=== PATIENT | male | born 1935 | race Caucasian/White ===

== ENCOUNTER 2017-06-29 10:32 | Inpatient (IN) | payer MEDICARE ==
[~2017-06-29] VITALS: Ht 177.8 cm; Wt 122.0 kg
[~2017-06-29 10:32] MED LIST: ADLT ASA LOW81 MG PO; ALBUTEROL IN; ALBUTEROL2.5 MG/3 M IN; ALDACTONE25 MG OR; ALLOPURINOL100 MG PO; AMMONIUM LACTATE 12% EX; AMOXICILLIN875 MG OR; APAP/HYDRO325 MG/10 PO; ASMANEX 120220 MCG IN; ASMANEX 60220 MCG IN; ATIVAN0.5 MG PO; ATIVAN1 M1 PO; AUGMENTIN875TAB OR; AZITHROMYCIN250 MG PO; CEFTIN500 MG PO; CIPRO500 MG OR; CIPRO500 MG PO; CLARITIN10 MG PO; COLACE100 MG PO; CORTISPORIN OTI10 ML AD; COUMADIN2.5 MG PO; COUMADIN5 MG OR; COUMADIN7.5 MG PO; D31000 UNIT PO; DICLOFENAC SODI1.5 % TOP; DILAUDID 2MG2 MG/TA1 PO; DILTIAZEM120 MG PO; DILTIAZEM180 MG OR; DRISDOL50000 UNT OR; EPLERENONE25 MG PO; FERROUS SULF325 M1 PO; FLONASE NASAL50 MCG; FLUNISOLIDE 0.025% NAB; FLUNISOLIDE0.025 %; FLUOROURACIL51 EX; FORADIL IN; FUROSEMIDE40 MG PO; GABAPENTIN100 MG PO; GLUCOTROL10 MG PO; GLYB/METFO5 MG/500 M OR; GLYB/METFO5 MG/500 M PO; GUAIFENESIN400 MG OR; GUAIFENESIN400 MG PO; KEFLEX500 M1 PO; KEFLEX500 MG PO; KENALOG-4040 MG/ML IC; KLOR-CON 88 MEQ OR; LANTUS100 UNIT/M SC; LASIX 40 MG TAB40 MG OR; LASIX 40 MG TAB40 MG PO; LEVITRA10 MG OR; LIDOCAINE5 % TOP; LISINOPRIL10 MG OR; LORCET10/650 PO; LORTAB 5 OR; METHYLPRED4 M1 OR; METOLAZONE10 MG PO; METOPROLOL SUC200 MG PO; MORPHINE SUL30 M3 PO; NASONEX50 MCG/AC; NEURONTIN100 MG PO; NORTRIPTYLIN10 MG PO; NOVOLIN N1 ML SC; NOVOLIN N1000 UNITS; NOVOLIN N1000 UNITS SC; NOVOLIN R U-1001 ML SC; NOVOLOG FL100 UNIT/M SC; NOVOLOG FLEXPEN SC; OXY1; POLYETHYLENE GLYCO2 PO; POT CHLORIDE20 ME3 PO; PREDNISONE10 MG PO; PREDNISONE20 MG PO; PROSCAR OR; PROSCAR5 MG PO; PROVENTIL HFA INH; PROVENTIL0.083 % IN; ROCALTROL0.25 MCG OR; SENNOSIDES8.6 M1 PO; SIMVASTATIN20 MG PO; SPIRIVA IN; SYMBICORT 80-4.5MCG PO; SYMBICORT1 AE1 IN; SYNTHROID25 MCG PO; SYNTHROID50 MCG PO; TAMSULOSIN0.4 MG PO; TEMAZEPAM30 MG PO; TERAZOSIN5 MG OR; TERAZOSIN5 MG PO; TOPROL XL PO; TOPROL XL200 M1 PO; TOPROL XL200 MG OR; TOPROL XL200 MG PO; ULTRAM50 MG OR; WARFARIN2.5 MG PO; WARFARIN5 MG PO; ZITHROMAX500 MG PO; ZOCOR10 MG PO; ZOCOR20 MG OR; ZOLPIDEM5 MG OR; [UNRECOGNIZED DRUG - OTHER] DT; [UNRECOGNIZED DRUG - OTHER] EX; [UNRECOGNIZED DRUG - OTHER] PO; [UNRECOGNIZED DRUG - OTHER] PO; [UNRECOGNIZED DRUG - REMARK]
--- NOTE | 2017-06-29 10:57 | NUR ---
PATIENT TO ROOM VIA WHEELCHAIR AND PHYSICIAN AT BEDSIDE FOR EVALUATION
[2017-06-29 11:28] LABS: IMMATURE GRANULOCYTES 0.6 % (0.0-1.0); MEAN CELL VOLUME 98.8 fL CALC (80.0-100.0); MEAN CORPUSCULAR HGB 30.5 pG CALC (26.0-32.0); MEAN CORPUSCULAR HGB CONC 30.8 g/L CALC (32.0-36.0); NEUT# 9.91 thou/uL (1.82-7.42); RED BLOOD COUNT 4.07 mill/uL (4.70-6.10); RED CELL DISTRI WIDTH 15.6 % (11.5-15.5)
[2017-06-29 11:31] LABS: HEMATOCRIT 40.2 % (39.0-50.0); HEMOGLOBIN 12.4 g/dl (14.0-18.0)
--- NOTE | 2017-06-29 11:38 | NUR ---
PT PROVIDED LASIX ORDERED, SITS UP STRAIGHT IN STRETCHER TO ALLOW FOR BETTER BREATHING. PT AWARE OF PENDING ADMISSION.
[2017-06-29] MEDS ORDERED: ELIQUIS2.5 MG PO (11:44)
[2017-06-29] MEDS ORDERED: BISACODYL5 MG PO (11:45)
[2017-06-29 11:47] LABS: ACT PARTIAL THROMBO TIME 26.4 SECONDS (20.0-32.5)
[2017-06-29] MEDS ORDERED: CALCITRIOL0.25 MC1 PO (11:47)
[2017-06-29] MEDS ORDERED: [UNRECOGNIZED DRUG - OTHER] TOP (11:48)
[2017-06-29 11:49] LABS: PROTHROMBIN TIME 11.3 SECONDS (9.0-12.5)
[2017-06-29] MEDS ORDERED: DULOXETINE HCL30 MG PO (11:50)
[2017-06-29 11:51] LABS: BILIRUBIN, TOTAL 0.6 mg/dL (0.0-1.4); CREATININE 1.6 mg/dL (0.7-1.3); POTASSIUM 4.3 mmol/l (3.5-5.1); TOTAL PROTEIN 6.7 g/dL (6.3-8.2)
[2017-06-29] MEDS ORDERED: EPLERENONE25 MG PO (11:51)
[2017-06-29 11:52] LABS: ALBUMIN 3.7 g/dL (3.2-5.0)
[2017-06-29] MEDS ORDERED: LEVOTHYROXIN75 MCG PO (11:56)
[2017-06-29] MEDS ORDERED: TORSEMIDE20 M1 PO ×2 (12:02)
[2017-06-29] MEDS ORDERED: TRAMADOL HCL50 MG PO (12:03)
[2017-06-29 12:16] LABS: URINE BILIRUBIN - DIPSTICK NEGATIVE (NEGATIVE); URINE BLOOD DIPSTICK NEGATIVE (NEGATIVE); URINE COLOR YELLOW; URINE GLUCOSE - DIPSTICK NEGATIVE (NEGATIVE); URINE KETONE NEGATIVE (NEGATIVE); URINE LEUK ESTERASE NEGATIVE (NEGATIVE); URINE NITRITE - DIPSTICK NEGATIVE (Negative); URINE UROBILINOGEN - DIPSTICK 0.2 E.U./dL (0.2)
[2017-06-29 12:31] LABS: URINE CLARITY CLEAR
[2017-06-29 12:32] LABS: URINE PROTEIN - DIPSTICK Trace mg/dL (NEG-TRACE)
[2017-06-29 12:41] LABS: INFLUENZA A NONE DETECTED (NONE DETECT); INFLUENZA B NONE DETECTED (NONE DETECT)
--- NOTE | 2017-06-29 14:45 | NUR ---
PT TAKEN TO M/S, REPORT WAS TO JACE.
--- NOTE | 2017-06-29 14:52 | NUR ---
PT CAME FROM ER VIA WC WITH O2 VIA NC AT 2.5L/MIN BY SANGITA BARRETT. FRATERNITY ADVISER IN FOR FOR STAND BY ASSIST TO SCALE AND BED.
[2017-06-29 15:00] VITALS: BP 158/85
--- NOTE | 2017-06-29 15:50 | NUR ---
ASSESSMENT DONE TELE IN PLACE. LUNG SOUND DIMIMISHED.#20 LH THAT APPEARS HEALTHY. PT HAS 02 AT 2.5L/MIN VIA NC. PT DENIES PAIN AT THIS TIME. ORIENTED TO CALL LIGHT AND SAFETY PRECAUTIONS REINFORCED. IN ROOM.
--- NOTE | 2017-06-29 18:47 | NUR ---
CALLED DR. BRUMFIELD RE: PT FEELING SHORTNESS OF BREATH AND ORDERS RECEIVED.
[2017-06-29 19:05] VITALS: BP 161/93
--- NOTE | 2017-06-29 19:10 | NUR ---
REPORT RECIEVED; PT SITTING ON SIDE OF BED WITH FAMILY AT BEDISDE. RESP EVEN AND UNLABORED WITH O2 IN PLACE. PT DENIES ANY PAIN OR DISCOMFORT. PLAN OF CARE DISCUSSED. PT ENCOURAGED TO CALL FOR ASSISTANCE. SAFETY PRECAUTIONS REINFORCED. FREQUENT ROUNDS MADE. CALL LIGHT WITHIN REACH.
--- NOTE | 2017-06-29 19:34 | NUR ---
PT WOKE FOR ASSESSMENT;RESP EVEN AND UNLABORED WITH CPAP IN PLACE. PT DENIES PAIN OR DISCOMFORT. TELE IN PLACE. LUNGS DIMINISHED BILAT. ABD DISTENDED,SOFT; ACTIVE BOWEL SOUNDS NOTED. +1 EDEMA BILAT LEGS; PT ENCOURAGED TO ELEVATE. PEDAL PULSES PALPATED BILAT. IV LH PATENT; FLUSHED WITHOUT DIFFICULT. SAFETY PRECAUTIONS REINFORCED. CALL LIGHT WITHIN REACH.
[2017-06-30] VITALS (7 sets, daily range): BP systolic 115–135; BP diastolic 58–76
--- NOTE | 2017-06-30 00:05 | NUR ---
PT REPOSITIONED IN BEDSIDE CHAIR. PT STATES IT IS MORE COMFORTABLE TO SLEEP IN BEDSIDE CHAIR. RESP EVEN AND UNLABORED WITH O2 IN PLACE. PT DENIES PAIN CURRENTLY. TELE IN PLACE. SAFETY PRECAUTIONS REINFORCED. CALL LIGHT WITHIN REACH.
--- NOTE | 2017-06-30 03:42 | NUR ---
PT ASSISTED BACK TO BED FROM BEDSIDE CHAIR x2 PERSON ASSIST WITH WALKER. RESP EVEN AND UNLABORED WITH CPAP IN PLACE. TELE IN PLACE. SAFETY PRECAUTIONS REINFORCED. CALL LIGHT WITHIN REACH.
--- NOTE | 2017-06-30 04:00 | NUR ---
PT APPEARS TO BE SLEEPING AT THIS TIME. RESP EVEN AND UNLABORED WITH CPAP IN PLACE. TELE IN PLACE. CALL LIGHT WITHIIN REACH.
--- NOTE | 2017-06-30 08:52 | NUR ---
PT SITTING UP IN RECLINER CHAIR. ASSESSMENT COMPLETED. VSS. PT C/O DIFFICULTY SWALLOWING. ABLE TO TAKE PO MEDS, ONE BY ONE WITH WATER THIS MORNING. WILL AWAIT MD ROUNDS. POC DISCUSSED WITH PT. WILL CONTINUE TO MONITOR. CALL LIGHT IN REACH.
--- NOTE | 2017-06-30 09:25 | NUR ---
NOTIFIED BY ER STAFF OF PT RUNNING VTACH ON TELE MONITOR. PT SITTING IN CHAIR. MARCIN LEONARD IN ROOM WITH PT. NO DISTRESS NOTED.
--- NOTE | 2017-06-30 10:31 | NUR ---
PT VOIDED 200CC, REQUESTED HELP TO LAY IN BED. CALL LIGHT IN REACH.
--- NOTE | 2017-06-30 12:00 | NUR ---
PT WENT BACK TO BED WITH NO DISTRESS NOTED. IV SITE IS FREE FROM REDNESS OR EDEMA. CONTINUE TO OBSERVE AND MONITOR
[2017-06-30 12:02] LABS: HEMATOCRIT 37.5 % (39.0-50.0); HEMOGLOBIN 11.7 g/dl (14.0-18.0); IMMATURE GRANULOCYTES 0.5 % (0.0-1.0); MEAN CELL VOLUME 97.9 fL CALC (80.0-100.0); MEAN CORPUSCULAR HGB 30.5 pG CALC (26.0-32.0); MEAN CORPUSCULAR HGB CONC 31.2 g/L CALC (32.0-36.0); NEUT# 8.84 thou/uL (1.82-7.42); RED BLOOD COUNT 3.83 mill/uL (4.70-6.10)
--- NOTE | 2017-06-30 12:04 | NUR ---
PT SITTING UP ON SIDE OF BED EATING LUNCH. NO C/O AT THIS TIME. CALL LIGHT IN REACH.
[2017-06-30 12:22] LABS: ALBUMIN 3.4 g/dL (3.2-5.0); BILIRUBIN, TOTAL 0.6 mg/dL (0.0-1.4); CREATININE 1.7 mg/dL (0.7-1.3); MAGNESIUM 2.1 mg/dL (1.6-2.3); POTASSIUM 4.6 mmol/l (3.5-5.1); TOTAL PROTEIN 6.4 g/dL (6.3-8.2)
--- NOTE | 2017-06-30 16:00 | NUR ---
PT IS SITTING UP IN THE CHAIR AND VISITING WITH HIS NO DISTRESS NOTED. IV SITE IS FREE FROM REDNESS OR EDEMA. CONTINUE TO OSBERVE AND MONITOR.
--- NOTE | 2017-06-30 19:57 | NUR ---
BEDSIDE REPORT RECEIVED FROM STEVEN CRUZ. PT SITTING UP IN BED WITH VISITOR AT BEDSIDE. DENIES PAIN. RESPIRATIONS EVEN AND UNLABORED ON OXYGEN. PT REMINDED OF FLUID RESTRICTIONS; MOUTH SWABS GIVEN TO HELP WITH MOISTENING DRY MOUTH. PLAN OF CARE DISCUSSED. PT ENCOURAGED TO VERBALIZE CONCERNS. STATES UNDERSTANDING. SAFETY MEASURES IN PLACE. CALL LIGHT WITHIN REACH.
--- NOTE | 2017-06-30 20:30 | NUR ---
[facility] TECH CALLED TO NOTIFY NURSE OF SLOW RUN OF VTACH THAT DID NOT SUSTAIN. AT TIME OF RHYTHM CHANGE PT WAS UP TO BSC. PT ASYMPTOMATIC AND RETURNED TO AFIB AT REST. WILL CONTINUE TO MONITOR.
--- NOTE | 2017-06-30 22:49 | NUR ---
AMBULATED TO BATHROOM WITH 4W ROLLING WALKER. VOIDED AND VERBALIZED CHRONIC ISSUES WITH CONSTIPATION. ATTEMPTED TO HAVE BOWEL MOVEMENT AND STATES THAT HE TAKES LAXATIVES AT HOME REGULARLY AND THIS WILL BE HIS THIRD DAY WITHOUT A BM. MIRALAX GIVEN AT THIS TIME. PT ASSISTED BACK INTO BED. CPAP IN PLACE AT . NO OTHER REQUESTS OR COMPLAINTS AT THIS TIME. CALL LIGHT WITHIN REACH.
[2017-07-01] VITALS: BP 136/73
--- NOTE | 2017-07-01 00:11 | NUR ---
PT ASLEEP IN BED ON LEFT SIDE; AWAKENS TO TACTILE STIMULI; HE IS HARD OF HEARING AND WEARS BILATERAL HEARING AIDS. DENIES PAIN. RESPIRATIONS EVEN AND UNLABORED WITH CPAP IN PLACE. VS STABLE. IV SITE APPEARS HEALTHY AND FLUSHES. PT HAS NO REQUESTS OR COMPLAINTS AT THIS TIME. SAFETY MEASURES IN PLACE. CALL LIGHT WITHIN REACH.
--- NOTE | 2017-07-01 05:09 | NUR ---
PT REQUESTED PUDDING BECAUSE HE FELT LIGHT HEADED WITH BLURRED VISION. ACCU CHECK AT THAT TIME 60. ORANGE JUICE AND PUDDING GIVEN. WILL REASSESS. PT ALREADY FEELING BETTER. UP IN CHAIR NOW RT AT BEDSIDE GIVING BREATHING TREATMENT.
[2017-07-01 05:22] LABS: HEMATOCRIT 38.9 % (39.0-50.0); IMMATURE GRANULOCYTES 0.4 % (0.0-1.0); MEAN CELL VOLUME 98.2 fL CALC (80.0-100.0); MEAN CORPUSCULAR HGB 30.3 pG CALC (26.0-32.0); MEAN CORPUSCULAR HGB CONC 30.8 g/L CALC (32.0-36.0); NEUT# 6.53 thou/uL (1.82-7.42); RED BLOOD COUNT 3.96 mill/uL (4.70-6.10); RED CELL DISTRI WIDTH 15.1 % (11.5-15.5)
[2017-07-01 06:17] LABS: ALBUMIN 3.1 g/dL (3.2-5.0); BILIRUBIN, TOTAL 0.5 mg/dL (0.0-1.4); CREATININE 1.7 mg/dL (0.7-1.3); MAGNESIUM 2.2 mg/dL (1.6-2.3); POTASSIUM 3.8 mmol/l (3.5-5.1); TOTAL PROTEIN 5.9 g/dL (6.3-8.2)
[2017-07-01 06:48] LABS: TSH, 3RD GENERATION 5.95 uIU/mL (0.47 - 4.68)
--- NOTE | 2017-07-01 07:00 | NUR ---
REPORT RECEIVED FROM SANGITA ALVAREZ;PT APPEARS OOB SLEEPING IN RECLINER;RESPIRATIONS EVEN AND UNLABORED WITH HOME CPAP ON;NO S/S OF DISTRESS NOTED;TELE MONITOR IN PLACE;CALL LIGHT IN REACH;WILL CONTINUE TO MONITOR
[2017-07-01 07:50] VITALS: BP 133/76
--- NOTE | 2017-07-01 07:50 | NUR ---
PT OOB RESTING IN RECLINER;VS OBTAINED AND ASSESSMENT COMPLETED;RESPIRATIONS EVEN AND UNLABORED ON 02 @ 2.5L VIA NC;ABDOMEN DISTENDED/FIRM ON PALPATION WITH 4 ACTIVE BOWEL SOUNDS;FLUID RESTRICTIONS REINFORCED,1000 ML PER SHIFT;WEAK PEDAL PULSES AND +2 PITTING EDEMA NOTED TO BILATERAL ANKLES;ENCOURAGED PT TO ELEVATE LEGS;#20G TO LEFT HAND FLUSHED AND PATENT,SITE APPEARS HEALTHY;TELE MONITOR IN PLACE;PT NOTED TO BE HARD OF HEARING;PT VOICES NO COMPLAINTS OF PAIN OR DISCOMFORTS;SAFETY PRECAUTIONS REINFORCED;CALL LIGHT WITHIN REACH;WILL CONTINUE TO MONITOR
[2017-07-01 10:48] VITALS: BP 136/79
--- NOTE | 2017-07-01 11:20 | NUR ---
PT OOB SLEEPING IN RECLINER WITH HOME CPAP ON;RESPIRATIONS APPEAR EVEN AND UNLABORED;NO S/S OF DISTRESS NOTED;TELE MONITOR IN PLACE;FALL PRECAUTIONS;CALL LIGHT IN REACH;WILL CONTINUE TO MONITOR
[2017-07-01 14:51] VITALS: BP 151/80
--- NOTE | 2017-07-01 15:02 | NUR ---
PT COMPLAINS OF BILATERAL HAND ACHING RATING 6/10 ON THE PAIN SCALE AND REQUESTS PAIN MEDICATION;PT MEDICATED WITH ULTRAM 50MG PO AT THIS TIME;WILL MONITOR FOR EFFECT
--- NOTE | 2017-07-01 16:04 | NUR ---
PT RESTING IN RECLINER WITH AT BEDSIDE;REPORTS A DECREASE IN BILATERAL HAND PAIN;RESPIRATIONS REMAIN EVEN AND UNLABORED ON 02 @ 2.5L;PT VOICES NO COMPLAINTS OR CONCERNS;TELE MONITOR;FALL PRECAUTIONS IN PLACE;WILL CONTINUE TO MONITOR
--- NOTE | 2017-07-01 19:00 | NUR ---
BEDSIDE REPORT RECEIVED FROM STEVEN SAUNDERS. PT SITTING UP IN BEDSIDE CHAIR WITH VISITORS AT BEDSIDE. C/O SOME MILD PAIN TO HANDS; RESPIRATIONS EVEN AND UNLABORED ON OXYGEN. CONTINUES ON FLUID RESTRICTION OF 1000ML/DAY. PLAN OF CARE REVIEWED. PT ENCOURAGED TO VERBALIZE CONCERNS. HIS GOAL THIS SHIFT IS TO HAVE A BOWEL MOVEMENT; HE IS CONCERNED ABOUT CONSTIPATION. SAFETY MEASURES IN PLACE. CALL LIGHT WITHIN REACH.
[2017-07-01 19:10] VITALS: BP 147/88
--- NOTE | 2017-07-01 22:30 | NUR ---
PT NOW RESTING IN BED WITH CPAP IN PLACE. HE AMBULATED TO BATHROOM PRIOR WITH OXYGEN EXTENSION TUBING TO VOID ONLY. TRAMADOL GIVEN AT HS FOR HAND NEUROPATHY WITH GOOD EFFECT.
[2017-07-02] VITALS (7 sets, daily range): BP systolic 131–170; BP diastolic 65–90
--- NOTE | 2017-07-02 00:34 | NUR ---
PT SITTING UP IN CHAIR AGAIN WITH COMPLAINTS OF INDIGESTION; HE REQUESTED SOME MILK TO SETTLE HIS STOMACH; GIVEN A SMALL AMOUNT TO COMPLY WITH FLUID RESTRICTION.
--- NOTE | 2017-07-02 04:37 | NUR ---
PT BACK UP IN CHAIR WITH CPAP IN PLACE. REQUESTS SOMETHING MORE FOR CONSTIPATION. NO ACUTE CHANGES IN CONDITION NOTED THIS SHIFT. TELE ON. IV SITE APPEARS HEALTHY AND FLUSHES. SAFETY MEASURES IN PLACE. CALL LIGHT WITHIN REACH.
[2017-07-02 05:45] LABS: CREATININE 1.6 mg/dL (0.7-1.3); POTASSIUM 4.1 mmol/l (3.5-5.1)
--- NOTE | 2017-07-02 07:00 | NUR ---
REPORT RECEIVED FROM ANTONIORN;PT OOB RESTING IN RECLINER;INTRODUCED SELF TO PT AND POC DISCUSSED;RESPIRATIONS EVEN AND UNLABORED,SHALLOW ON 02 @ 2.5L VIA NC;PT ENCOURAGED TO EXPRESS ALL CONCERNS;CALL LIGHT IN REACH;WILL CONTINUE TO MONITOR
--- NOTE | 2017-07-02 08:50 | NUR ---
PT RESTING IN RECLINER;VS OBTAINED AND ASSESSMENT COMPLETED;RESPIRATIONS EVEN AND UNLABORED,SHALLOW ON O2 @ 2.5L VIA NC,HOME CPAP AT BEDSIDE;LUNGS DIMINISHED/CLEAR ON AUSCULTATION;ABDOMEN DISTENDED/FIRM ON PALPATION AND ACTIVE IN ALL 4 QUADRANTS;WEAK PEDAL PULSES AND +2 PITTING EDEMA NOTED TO BILATERAL ANKLES;PT ENCOURAGED TO ELEVATE LEGS;#20G TO LEFT HAND FLUSHED AND PATENT,SITE APPEARS HEALTHY;SKIN INTACT;TELE MONITOR IN PLACE;PT REMINDED OF 1000CC A DAY DIET AND VERBALIZES UNDERSTANDING;SAFETY PRECAUTIONS REINFORCED WITH FALL PRECAUTIONS IN PLACE;CALL LIGHT WITHIN REACH;WILL CONTINUE TO MONITOR
--- NOTE | 2017-07-02 09:45 | NUR ---
PT MEDICATED WITH PRN MIRLAX FOR CONSTIPATION AT THIS TIME
--- NOTE | 2017-07-02 11:29 | NUR ---
PT RESTING IN SEMI FOWLERS POSITION IN BED WITH HOME CPAP ON;RESPIRATIONS EVEN AND UNLABORED;PT DENIES PAIN OR DISCOMFORTS;TELE MONITOR IN PLACE;PT ENCOURAGED TO CALL FOR ASSISTANCE IF NEEDED;FALL PRECAUTIONS;WILL CONTINUE TO MONITOR
--- NOTE | 2017-07-02 13:02 | NUR ---
PT COMPLAINS OF NAUSEA;PRN ZOFRAN 4MG IVP AT THIS TIME
--- NOTE | 2017-07-02 14:55 | NUR ---
PT AT BEDSIDE
--- NOTE | 2017-07-02 15:10 | NUR ---
PT WAS SEEN RESTING IN BED WITH IN THE ROOM. PT AND BOTH REQUESTED THE EVALUATION TO BE DONE TOMORROW OR WHEN THE PATIENT FEELS BETTER. STATES THAT PATIENT HAS BEEN FEELING SICK IN HIS STOMACH. PT HAD CPAP AND O2 ON 2L, SPO2 WAS 97% HOWEVER WITH APPARENT DYSPNEA. WILL RE-ATTEMPT EVALUATION TOMORROW.
--- NOTE | 2017-07-02 16:00 | NUR ---
GLYCERIN SUPPOSITORY ADMINISTERED FOR CONSTIPATION; AT BEDSIDE;RESPIRATIONS EVEN AND UNLABORED ON HOME CPAP;DENIES ANY PAIN;TELE MONITOR IN PLACE;IV SITE PATENT;ENCOURAGED TO CALL FOR ASSISTANCE IF NEEDED;CALL LIGHT IN REACH;WILL CONTINUE TO MONITOR
--- NOTE | 2017-07-02 16:45 | NUR ---
PT REQUEST ENEMAS;DUANE RUIZ,ANRP NOTIFIED AND ORDERS RECEIVED TO ADMINISTER SOAP JOSHUA ENEMAS UNTIL CLEAR
--- NOTE | 2017-07-02 16:50 | NUR ---
1ST ROUND OF SOAP SUDS ENEMAS ADMINISTERED,PT TOLERATED WELL;SCANT DARK BROWN BM OBTAINED
--- NOTE | 2017-07-02 17:30 | NUR ---
FIRST BAG OF SOAP JOSHUA ENEMAS COMPLETED;SCANT,DARK BROWN BM NOTED;PT REPORTS SOME RELIEF AT THIS TIME;WILL CONTINUE TO MONITOR
--- NOTE | 2017-07-02 19:55 | NUR ---
PT RESTING IN BED WITH CPAP IN PLACE. PT OFFERED SOAP JOSHUA ENEMA AT THIS TIME, PT REFUSING ENEMA STATING " I DID NOT SLEEP LAST NIGHT OR TODAY, I DONT WANT ENEMA. I WANT TO SLEEP". RESP EVEN AND UNLABORED; NO DISCOMFORT NOTED. TELE IN PLACE. ABD DIST/FIRM; HYPOACTIVE BOWEL SOUNDS NOTED. +2 ANKLE EDEMA NOTED. PT HAS DANNY HOSE ON. IV 20LH PATENT; FLUSHED WITHOUT DIFFICULTY. PT DENIES ANY PAIN. SAFETY PRECAUTIONS REINFORCED. FREQUENT ROUNDS MADE. PT ENCORUAGED TO CALL FOR ASSISTANCE. CALL LIGHT WITHIN REACH.
--- NOTE | 2017-07-02 21:10 | NUR ---
DR NOTIFIED OF PT BLOOD SUGAR; 159. OK TO GIVE LEVEMIR 2100 DOSE.
[2017-07-03] VITALS (7 sets, daily range): BP systolic 121–157; BP diastolic 54–91
--- NOTE | 2017-07-03 00:04 | NUR ---
SOAP JOSHUA ENEMA ADMINISTERED; SCANT AMOUNT OF BROWN BM NOTED. PT DEINES ANY PAIN. PT RESPOSITIONED IN BED FOR COMFORT. RESP EVEN AND UNLABORED WITH CPAP IN PLACE. TELE IN PLACE. PT REQUEST TO SLEEP AFTER THIS ENEMA. SAFETY PRECAUTIONS REINFORCED. CALL LIGHT WITHIN REACH.
--- NOTE | 2017-07-03 04:05 | NUR ---
PT OFFERED SOAP JOSHUA ENEMA, PT STATES " I WANT TO GO BACK TO SLEEP." PT UP TO [facility] [place]ED 200 YELLOW URINE. RESP EVEN AND UNLABORED WITH CPAP IN PLACE. TELE IN PLACE. PT EDUCATED MORE ON NPO DIET SINCE MIDNIGHT FOR MORNING BARIUM SWALLOW STUDY. PT REPOSITIONED FOR COMFORT. CALL LIGHT WITHIN REACH.
[2017-07-03 05:38] LABS: HEMATOCRIT 39.3 % (39.0-50.0); HEMOGLOBIN 12.2 g/dl (14.0-18.0); MEAN CELL VOLUME 99.2 fL CALC (80.0-100.0); MEAN CORPUSCULAR HGB 30.8 pG CALC (26.0-32.0); RED BLOOD COUNT 3.96 mill/uL (4.70-6.10); RED CELL DISTRI WIDTH 15.1 % (11.5-15.5)
[2017-07-03 05:47] LABS: CREATININE 1.6 mg/dL (0.7-1.3); MAGNESIUM 2.5 mg/dL (1.6-2.3); POTASSIUM 4.2 mmol/l (3.5-5.1)
--- NOTE | 2017-07-03 07:50 | NUR ---
Pt off floor for barium swallow study.
--- NOTE | 2017-07-03 08:00 | NUR ---
pt. alert, oriented to time, place & self. VS stable, Pt. NPO prior to barium swallow study. O2@2lpm. SBA with ADL's , transfers, and toileting. IV site left hand clean & dry, no s/s of redness or swelling. Telemetry in place. 1000 FR intact. DANNY's intact BLE with +2 pitting edema on left foot to ankle, and +1 left ankle to knee. RLE with +1 pitting edema from toes to knee. Pt able to verbalize needs. call light in place. will continue to monitor.
--- NOTE | 2017-07-03 08:00 | NUR ---
Pt back to floor, unable to complete study, breakfast tray ordered. 1800 ADA with 1000 ml FR intact.
--- NOTE | 2017-07-03 08:40 | NUR ---
specification writer spoke with [facility], Radiology in regards to barrium swallow; per [facility], pt was unable to tolerate procedure/ during to inabilty to stand, inabilty to lay flat and pt states "feeling of passing out"; MD to be informed
[2017-07-03] MEDS ORDERED: Levaquin PO (12:44)
--- NOTE | 2017-07-03 13:33 | NUR ---
Pt. alert, oriented to self, place, time. Takes PO fluids & meds without difficulty noted. Pt medicated x1 this shift for BLE pain "5" on 1-10 scale with good relief verbalized by pt. Pt resting with feet up in recliner and cpap in place per pt request. Call light in reach. will continue to monitor.
--- NOTE | 2017-07-03 15:19 | NUR ---
PT off floor with volunteer via W/C to radiology for CT of abdomen & pelvis w/o contrast. 02@2lpm via NC.
--- NOTE | 2017-07-03 18:45 | NUR ---
Notified Dr. Graham via telephone @ [phone], recieved call back now. New order keep pt. til BM. Give ducolax suppository, RBVO, order fax to [facility] for profile. Pt made aware of new order and verbalized understanding. IV levaquin going without difficulty , pt denies SOB, pain or discomfort at this time. Pt sitting at bedside in recliner with feet up visiting with family. Call light in reach. w2ill continue to monitor.
--- NOTE | 2017-07-03 19:00 | NUR ---
RECEIVED CHANGE OF SHIFT REPORT FROM James ARIAS RN. PATIENT ALERT AND ORIENTED AND SITTING UP IN CHAIR WITH CPAP IN PLACE. PT SSTATED "MY KNEES ARE WEAK". ASSISTED PT TO BSC TO VOID. NO APPARENT ACUTE DISTRESS NOTED.
--- NOTE | 2017-07-03 21:44 | NUR ---
PATIENT STATES HIS CPAP IS NOT GIVING ENOUGH PRESSURE AND HE'S NOT ABLE TO LIE DOWN AND BREATHE EFFECTIVELY. SPOKE WITH DR VIVEROS ABOUT TRANSFERING PT TO ICU TO BE PLACED ON A BIPAP DURING THE NIGHT. ORDERS RECEIVED TO TRANSFER PT.
--- NOTE | 2017-07-03 23:00 | NUR ---
STABLE UPON ARRIVAL VIA WC ON 2L NC. SPO2 IS 100% ON NC. NO DISTRESS. AWAKE, ALERT, ORIENTED X 3. SKIN WARM AND DRY. BENNY. DIMINISHED THROUGHOUT LIKELY DUE TO BODY HABITUS PT. IS MORBIDLY OBESE.
--- NOTE | 2017-07-03 23:00 | NUR ---
PT STATED "I NOT FEELING SAFE". TRANSFERRED TO ICU VIA WHEELCHAIR IN SATBLE CONDITION AND PLACED ON BIPAP.
[2017-07-03 23:02] LABS: POTASSIUM 4.4 mmol/l (3.5-5.1)
--- NOTE | 2017-07-03 23:15 | NUR ---
THIS RN NOTED SIGNIFICANT LEAK FROM PATIENTS OWN CPAP MASK AROUND THE BRIDGE OF THE NOSE. RT NOTIFIED. MASK CHANGED TO OUR C/BIPAP MASK AND LEAK HAS BEEN ELIMINATED AT THIS TIME.
[2017-07-04] VITALS (9 sets, daily range): BP systolic 120–157; BP diastolic 64–88
--- NOTE | 2017-07-04 | NUR ---
PT. TO BEDSIDE COMMODE. LARGE DARK GREEN LOOSE BOWEL MOVEMENT AT THIS TIME. PT. REMAINS ON BIPAP. PT. UNABLE TO WIPE HIMSELF. ASSISTED WITH WASH CLOTH AT THIS TIME. PT. WITH ONE PERSON ASSIST BACK TO BED AT THIS TIME. CALL LIGHT PLACED BACK WITHIN REACH.
--- NOTE | 2017-07-04 01:10 | NUR ---
PT. BODY SHOP MECHANIC LIGHT WITH MULTIPLE NEEDS. CLAIMS HE NEEDS WATER, TO SIT UP AND HE IS COLD. ASSISTED TO BEDSIDE.
--- NOTE | 2017-07-04 01:12 | NUR ---
PT. PROVIDED WITH WATER THE BIPAP IS "MAKING HIS MOUTH DRY". PT. REQUESTING TO SIT AT THE BEDSIDE AT THIS TIME. ASSISTED TO BEDSIDE SO HE CAN SIT UP. WILL CONTINUE TO MONITOR.
--- NOTE | 2017-07-04 01:29 | NUR ---
PT. SHIPPING TECHNICIAN LIGHT REQUESTING TO GET BACK INTO BED. REQUESTING ON LAY ON RT. SIDE AT THIS TIME. MAX ASSIST THIS NURSE HAD TO PHYSICALLY TURN PT. ON HIS SIDE PT. PROVIDES MINIMAL ASSIST TO TURN.
--- NOTE | 2017-07-04 01:55 | NUR ---
PT. AGAIN OCCUPATIONAL THERAPIST REHAB MANAGER LIGHT C/O RT. SHOULDER PAIN BECAUSE HE IS LAYING ON IT AND HAS "ARTHRITIS". REPOSITIONED TO LT. SIDE PER PATIENT REQUEST. STATES HE IS COLD. TEMPERATURE IN ROOM IS A WARM IT GETS AND PT. HAS MULTIPLE BLANKETS. PT. DENIES OTHER COMPLATINS OR NEEDS AT THIS TIME.
--- NOTE | 2017-07-04 02:45 | NUR ---
PT. CONTINUES TO MOAN LOUDLY. WHEN ASKED IF ANYTHING IS WRONG, PT. STATES HE IS SO UNCOMFORTABLE. WHEN ASKED IF ANYTHING HE NEEDS REPORTS HE NEEDS TO GO HOME IN THE AM.
--- NOTE | 2017-07-04 03:36 | NUR ---
RT. AT BEDSIDE AT THIS TIME. PT. REMAINS IN BIPAP AT THIS TIME. NO DISTRESS NOTED. REMAINS REPORTEDLY UNCOMFORTABLE. BIPAP REMAIN WITH A GOOD SEAL AT THIS TIME. PT. STATE HE MAY NEED TO HAVE A BOWEL MOVEMENT. THIS RN OFFERED TO GET HIM TO THE BSC, BUT PT. REFUSED AT THIS TIME. STATING HE WANTS TO WAIT.
--- NOTE | 2017-07-04 03:40 | NUR ---
PT. AGAIN ASSOCIATE MATERIAL HANDLER LIGHT REQUESTING ASSISTANCE IN SITTING UP. ASSISTED TO SIT AT BEDSIDE.
--- NOTE | 2017-07-04 03:55 | NUR ---
PT. AGAIN ON THE CALL LIGHT. REQUESTING THAT THE BIPAP BE REMOVED AT THIS TIME. STATING HIS MOUTH IS DRY AND HE WANTS SOME WATER. PROVIDED WITH WATER AND NASAL CANNULA APPLIED AT THIS TIME.
--- NOTE | 2017-07-04 04:02 | NUR ---
PT. SITTING UP AT BEDSIDE. AGAIN CALLS ON THE CALL LIGHT REQUEST SOMETHING TO EAT AND A WARM BEVERAGE. PT. INFORMED BREAKFAST MEALS ARE SERVED AT 0730. ASKED IF THERE IS ANYTHING ELSE HE ANTICIPATES NEEDING IN THE NEAR FUTURE. PT. DENIES OTHER NEEDS.
--- NOTE | 2017-07-04 05:13 | NUR ---
PT. CONTINUES TO SIT AT BEDSIDE IN NO DISTRESS. REQUESTING JUICE, A NEBULIZER TREATMENT AND TO THEN GO BACK ON THE BIPAP FOR A BIT. RT CALLED FOR NEB TREATMENT. PT. PROVIDED WITH APPLE JUICE PER HIS REQUEST.
--- NOTE | 2017-07-04 05:22 | NUR ---
RT AT BEDSIDE. NEB TREATMENT IN PROGRESS.
--- NOTE | 2017-07-04 05:34 | NUR ---
NEB TREATMENT COMPLETE. PT. PLACED BACK ON BIPAP BY RT PER HIS REQUEST AT THIS TIME.
--- NOTE | 2017-07-04 05:43 | NUR ---
PT. PROVIDED WITH ANOTHER BLANKET AT THIS TIME.
--- NOTE | 2017-07-04 06:04 | NUR ---
PT. ASSISTED BACK TO BED PER HIS REQUEST AT THIS TIME.
--- NOTE | 2017-07-04 07:15 | NUR ---
PT ALERT AND ORIENTED, AM ASSESSMENT COMPLETED, OUR BI-PAP IN USE AT THIS TIME, VS STABLE TELE READING A FIB RATE IN THE 70'S WITH OCCASIONAL PACED SPIKES, ABD SOFT AND BS ACTIVE, PT HAD MULTIPLE BM'S LAST PM PER REPORT, SKIN WARM DRY AND INTACT, PT WEARING HOME COMPRESSION HOSE, BILATERALLY KNEE HI, ACCU CHECK COMPLETED BS 72, VS STABLE, AFEBRILE, BP STABLE, COMFORT MEASURES PROVIDED, SAFETY PRECAUTIONS REINFORCED, CALL SANTO WITHIN REACH, WILL CONTINUE TO MONITOR
--- NOTE | 2017-07-04 08:20 | NUR ---
AND DUANE BURCH AT BEDSIDE, PT GIVES CONFLICTING INFORMTAION REGARDING REASON FOR TRANSFER AND WHY HERE IN ICU. STATES HIS HOME UNIT NOT WORKING AND SO THEY BROUGHT HIM OVER HERE, PER REPORT PT STATED HE DIDN'T FEEL SAFE BECAUSE HE WASN'T GETTING ENOUGH PRESSURE FROM HIS HOME UNIT, SO THEY BROUGHT HIM TO ICU AND PLACED ON OUR UNIT WITH HIS OWN MASK, THAT MASK NOTED TO LEAK SO PLACED PT ON OUR MASK AND LEAK ISSUE RESOLVED, THEN PT STATES TO DUANE AND THAT HIS UNIT IS BROKEN AND HE JUST NEEDS A NEW UNIT AT HOME AND CAN HE GET A SCRIPT FOR A NEW UNIT, PT REMINDED THAT HE CANNOT "JUST GET A SCRIPT FOR A NEW ONE" AND THAT HE WOULD HAVE TO HAVE A NEW SLEEP STUDY ETC.. PT MUMBLES AND VERBALIZES UNDERSTANDING.
--- NOTE | 2017-07-04 08:45 | NUR ---
SPOKE WITH PT REGARDING UNIT ISSUE PT NOW STATES "IT JUST NEEDS TO BE CLEANED" THIS NURSE ASKED PT SOES HE HAVE THE STUFF TO CLEAN IT AT HOME AND PT STATES "YES", I'M SUPPOSED TO BE GOING HOME TODAY, MY CLOTHES ARE OVER THERE AND MY FAMILY IS BRINGING ME PANTS.
--- NOTE | 2017-07-04 09:09 | NUR ---
JOHN Gomez AT BEDSIDE MACHINE ON AND WORKING, PT STATES HE "WANTS IT TO HAVE THE SAME PRESSURE OUR BIPAP HERE, EDUCATED POT REGARDING DIFFERENCE IN MACHINES AND THAT FOR SETTING CHANGES TO HIS HOME UNIT HE WILL HAVE TO [facility]...THATH YOU CAN'T JUST CHANGE THE SETTINGS. PT AGAIN MUMBLAES BUT VERBAKLIZES UNDERSTANDING
--- NOTE | 2017-07-04 10:00 | NUR ---
PT FAMILY AND HOME HEALTH AIDE AT BEDSIDE, PT ASSISTED WITH DRESSING IV SITE REMOVED INTACT
--- NOTE | 2017-07-04 10:15 | NUR ---
Discharge instructions given. Patient verbalizes understanding of same. Discharged in stable condition via Wheelchair to Home with family. All belongings sent with pt. SCRIPT FOR LEVAQUIN SENT WITH PATIENT, ALL BELONGINGS AND PT'S OWN CPAP SENT WITH PATIENT WELL.
== END 2017-07-04 10:15 | disposition home health service (06) | DRG 291 ==
LOC: ED 10:32 → ED-I 11:25 → ED 12:48 → MS2 12:49 → ED 13:13 → ED-I 13:13 → ICU 07-03 21:44
PROVIDERS: Family Medicine; Internal Medicine; Internal Medicine Nephrology; Nurse Practitioner Family; ADMIT Hospitalist; ATTEND Hospitalist
PROC: 5A09357 Assistance with Respiratory Ventilation, Less than 24 Consecutive Hours, Continuous Positive Airway Pressure (ICD-10-PCS; principal; 2017-07-03)
DX: I13.0 Hypertensive heart and chronic kidney disease with heart failure and stage 1 through stage 4 chronic kidney disease, or unspecified chronic kidney disease (principal); I50.23 Acute on chronic systolic (congestive) heart failure; J18.9 Pneumonia, unspecified organism; E11.22 Type 2 diabetes mellitus with diabetic chronic kidney disease; E11.42 Type 2 diabetes mellitus with diabetic polyneuropathy; J44.0 Chronic obstructive pulmonary disease with (acute) lower respiratory infection; N18.3 Chronic kidney disease, stage 3 (moderate); R13.10 Dysphagia, unspecified; I48.91 Unspecified atrial fibrillation; N25.81 Secondary hyperparathyroidism of renal origin; Z99.81 Dependence on supplemental oxygen; E78.5 Hyperlipidemia, unspecified; D63.1 Anemia in chronic kidney disease; J61 Pneumoconiosis due to asbestos and other mineral fibers; G47.33 Obstructive sleep apnea (adult) (pediatric); K59.09 Other constipation; Z95.0 Presence of cardiac pacemaker; Z87.891 Personal history of nicotine dependence; Z79.01 Long term (current) use of anticoagulants
CPT/HCPCS: J1956

== ENCOUNTER 2017-07-18 11:34 | Inpatient (IN) | payer OTHER, MEDICARE ==
[2017-07-18] VITALS (8 sets, daily range): BP systolic 148–183; BP diastolic 70–94
[~2017-07-18] VITALS: Ht 177.8 cm; Wt 165.3 kg
[~2017-07-18 11:34] MED LIST changes: +BISACODYL5 MG PO; +CALCITRIOL0.25 MC1 PO; +DULOXETINE HCL30 MG PO; +ELIQUIS2.5 MG PO; +LEVOTHYROXIN75 MCG PO; +Levaquin PO; +TORSEMIDE20 M1 PO; +TRAMADOL HCL50 MG PO; +[UNRECOGNIZED DRUG - OTHER] TOP
[2017-07-18 11:59] LABS: HEMATOCRIT 39.3 % (39.0-50.0); HEMOGLOBIN 11.9 g/dl (14.0-18.0); IMMATURE GRANULOCYTES 0.5 % (0.0-1.0); MEAN CORPUSCULAR HGB CONC 30.3 g/L CALC (32.0-36.0); NEUT# 9.46 thou/uL (1.82-7.42); RED BLOOD COUNT 3.97 mill/uL (4.70-6.10); RED CELL DISTRI WIDTH 15.9 % (11.5-15.5)
[2017-07-18 12:17] LABS: CREATININE 1.5 mg/dL (0.7-1.3); POTASSIUM 4.3 mmol/l (3.5-5.1)
[2017-07-18 14:09] LABS: INFLUENZA A NONE DETECTED (NONE DETECT); INFLUENZA B NONE DETECTED (NONE DETECT)
[2017-07-19] VITALS (12 sets, daily range): BP systolic 129–156; BP diastolic 58–82
[2017-07-19 05:30] LABS: HEMATOCRIT 36.6 % (39.0-50.0); HEMOGLOBIN 11.4 g/dl (14.0-18.0); IMMATURE GRANULOCYTES 0.7 % (0.0-1.0); MEAN CELL VOLUME 98.1 fL CALC (80.0-100.0); MEAN CORPUSCULAR HGB 30.6 pG CALC (26.0-32.0); MEAN CORPUSCULAR HGB CONC 31.1 g/L CALC (32.0-36.0); NEUT# 5.02 thou/uL (1.82-7.42); RED BLOOD COUNT 3.73 mill/uL (4.70-6.10); RED CELL DISTRI WIDTH 15.6 % (11.5-15.5)
[2017-07-19 05:48] LABS: CREATININE 1.6 mg/dL (0.7-1.3)
[2017-07-19 14:35] LABS: URINE BILIRUBIN - DIPSTICK NEGATIVE (NEGATIVE); URINE BLOOD DIPSTICK NEGATIVE (NEGATIVE); URINE COLOR YELLOW; URINE GLUCOSE - DIPSTICK NEGATIVE (NEGATIVE); URINE KETONE NEGATIVE (NEGATIVE); URINE LEUK ESTERASE NEGATIVE (NEGATIVE); URINE NITRITE - DIPSTICK NEGATIVE (Negative); URINE PH 5.5 (4.5-8.0); URINE PROTEIN - DIPSTICK 100 mg/dL (NEG-TRACE); URINE SPECIFIC GRAVITY 1.025; URINE UROBILINOGEN - DIPSTICK 0.2 E.U./dL (0.2)
[2017-07-19 14:47] LABS: URINE CLARITY CLEAR
[2017-07-19 14:56] LABS: URINE MUCUS FEW hpf (NONE-FEW); URINE SQUAMOUS EPITHELIAL CELL FEW EPI/hpf (0-FEW)
[2017-07-20 07:50] LABS: CREATININE 1.9 mg/dL (0.7-1.3); POTASSIUM 4.9 mmol/l (3.5-5.1)
[2017-07-20 07:59] LABS: HEMATOCRIT 37.5 % (39.0-50.0); HEMOGLOBIN 11.5 g/dl (14.0-18.0); MEAN CELL VOLUME 98.4 fL CALC (80.0-100.0); MEAN CORPUSCULAR HGB 30.2 pG CALC (26.0-32.0); MEAN CORPUSCULAR HGB CONC 30.7 g/L CALC (32.0-36.0); RED BLOOD COUNT 3.81 mill/uL (4.70-6.10); RED CELL DISTRI WIDTH 15.6 % (11.5-15.5)
[2017-07-20 08:00] VITALS: BP 164/76
[2017-07-20 12:00] VITALS: BP 154/69
[2017-07-20] MEDS ORDERED: MEDDOSEPAK PO (13:33)
== END 2017-07-20 14:45 | disposition home health service (06) | DRG 190 ==
LOC: ED 11:34 → ED-I 13:09 → ED 13:09 → ED-I 13:10 → ED 13:30 → ICU 13:31
PROVIDERS: Family Medicine; Nurse Practitioner Family; ADMIT Internal Medicine; ATTEND Internal Medicine
PROC: 5A09357 Assistance with Respiratory Ventilation, Less than 24 Consecutive Hours, Continuous Positive Airway Pressure (ICD-10-PCS; principal; 2017-07-18)
DX: J44.1 Chronic obstructive pulmonary disease with (acute) exacerbation (principal); J96.22 Acute and chronic respiratory failure with hypercapnia; I50.33 Acute on chronic diastolic (congestive) heart failure; I13.0 Hypertensive heart and chronic kidney disease with heart failure and stage 1 through stage 4 chronic kidney disease, or unspecified chronic kidney disease; E11.22 Type 2 diabetes mellitus with diabetic chronic kidney disease; E11.42 Type 2 diabetes mellitus with diabetic polyneuropathy; N18.3 Chronic kidney disease, stage 3 (moderate); E87.6 Hypokalemia; J61 Pneumoconiosis due to asbestos and other mineral fibers; I48.91 Unspecified atrial fibrillation; G47.33 Obstructive sleep apnea (adult) (pediatric); E78.5 Hyperlipidemia, unspecified; E03.9 Hypothyroidism, unspecified; N40.0 Benign prostatic hyperplasia without lower urinary tract symptoms; K59.00 Constipation, unspecified; D64.9 Anemia, unspecified; Z79.01 Long term (current) use of anticoagulants; Z79.4 Long term (current) use of insulin; Z95.0 Presence of cardiac pacemaker

== ENCOUNTER 2017-07-29 15:13 | Emergency (ER) | payer OTHER, MEDICARE ==
[~2017-07-29] VITALS: Ht 177.8 cm; Wt 136.0 kg
[~2017-07-29 15:13] MED LIST changes: +MEDDOSEPAK PO
[2017-07-29 15:41] LABS: HEMATOCRIT 40.1 % (39.0-50.0); HEMOGLOBIN 12.1 g/dl (14.0-18.0); MEAN CELL VOLUME 99.8 fL CALC (80.0-100.0); MEAN CORPUSCULAR HGB 30.1 pG CALC (26.0-32.0); MEAN CORPUSCULAR HGB CONC 30.2 g/L CALC (32.0-36.0); NEUT# 14.5 thou/uL (1.82-7.42); RED BLOOD COUNT 4.02 mill/uL (4.70-6.10); RED CELL DISTRI WIDTH 15.7 % (11.5-15.5)
[2017-07-29 15:57] LABS: ALBUMIN 3.6 g/dL (3.2-5.0); ALKALINE PHOSPHATASE 86 u/l (38-126); ANION GAP 16 (6-22 (CALC)); BILIRUBIN, TOTAL 0.7 mg/dL (0.0-1.4); BUN 41 mg/dL (8-23); BUN/CREATININE RATIO 31 (12-20 (CALC)); CARBON DIOXIDE 39 mmol/l (22-30); CHLORIDE 93 mmol/l (95-108); CREATININE 1.3 mg/dL (0.7-1.3); GFR 53 ML/MIN (>=60 (CALC)); GFR FOR AFR.AMER. > 60 ML/MIN (>=60 (CALC)); SGPT/ALT 46 u/l (11-66); SODIUM 142 mmol/l (137-146); TOTAL PROTEIN 6.4 g/dL (6.3-8.2)
[2017-07-29 16:11] LABS: SGOT/AST 41 u/l (19-48)
[2017-07-29 17:29] VITALS: BP 134/90
== END 2017-07-29 17:29 | disposition short-term general hospital (02) | DRG 282 ==
LOC: ED 15:13
PROVIDERS: Family Medicine
PROC: 0T9B70Z Drainage of Bladder with Drainage Device, Via Natural or Artificial Opening (ICD-10-PCS; principal; 2017-07-29)
DX: I21.4 Non-ST elevation (NSTEMI) myocardial infarction (principal); E11.42 Type 2 diabetes mellitus with diabetic polyneuropathy; I11.0 Hypertensive heart disease with heart failure; I50.9 Heart failure, unspecified; Z95.0 Presence of cardiac pacemaker; Z85.828 Personal history of other malignant neoplasm of skin; Z85.51 Personal history of malignant neoplasm of bladder

== ENCOUNTER 2017-10-09 10:13 | Inpatient (IN) | payer OTHER, MEDICARE ==
[~2017-10-09] VITALS: Ht 177.8 cm; Wt 120.8 kg
[2017-10-09 10:46] LABS: IMMATURE GRANULOCYTES 0.7 % (0.0-1.0); MEAN CELL VOLUME 97.6 fL CALC (80.0-100.0); MEAN CORPUSCULAR HGB 30.1 pG CALC (26.0-32.0); MEAN CORPUSCULAR HGB CONC 30.8 g/L CALC (32.0-36.0); NEUT# 9.31 thou/uL (1.82-7.42); RED BLOOD COUNT 3.29 mill/uL (4.70-6.10); RED CELL DISTRI WIDTH 17.1 % (11.5-15.5)
[2017-10-09 10:52] LABS: HEMATOCRIT 32.1 % (39.0-50.0); HEMOGLOBIN 9.9 g/dl (14.0-18.0)
[2017-10-09 11:01] LABS: CREATININE 1.5 mg/dL (0.7-1.3); POTASSIUM 4.5 mmol/l (3.5-5.1)
[2017-10-09 12:24] LABS: URINE BILIRUBIN - DIPSTICK NEGATIVE (NEGATIVE); URINE BLOOD DIPSTICK NEGATIVE (NEGATIVE); URINE COLOR YELLOW; URINE GLUCOSE - DIPSTICK NEGATIVE (NEGATIVE); URINE KETONE NEGATIVE (NEGATIVE); URINE LEUK ESTERASE NEGATIVE (NEGATIVE); URINE NITRITE - DIPSTICK NEGATIVE (Negative); URINE PH 7.5 (4.5-8.0); URINE PROTEIN - DIPSTICK 100 mg/dL (NEG-TRACE); URINE UROBILINOGEN - DIPSTICK 0.2 E.U./dL (0.2)
[2017-10-09 12:25] LABS: URINE CLARITY CLEAR; URINE MUCUS MODERATE hpf (NONE-FEW)
[2017-10-09 14:35] VITALS: BP 150/78
[2017-10-09 19:10] VITALS: BP 158/94
[2017-10-10 00:04] VITALS: BP 130/69
[2017-10-10 04:20] VITALS: BP 121/67
[2017-10-10 06:18] LABS: HEMOGLOBIN 9.4 g/dl (14.0-18.0); MEAN CELL VOLUME 97.1 fL CALC (80.0-100.0); MEAN CORPUSCULAR HGB 30.4 pG CALC (26.0-32.0); MEAN CORPUSCULAR HGB CONC 31.3 g/L CALC (32.0-36.0); RED BLOOD COUNT 3.09 mill/uL (4.70-6.10); RED CELL DISTRI WIDTH 16.8 % (11.5-15.5)
[2017-10-10 06:36] LABS: CREATININE 1.6 mg/dL (0.7-1.3); POTASSIUM 4.7 mmol/l (3.5-5.1)
[2017-10-10 06:38] LABS: CHOLESTEROL HDL RATIO 4.2 (<4.4 (CALC))
[2017-10-10 07:18] VITALS: BP 109/68
[2017-10-10 11:00] VITALS: BP 117/58
[2017-10-10] MEDS ORDERED: OMEPRAZOLE20 MG PO (15:55)
[2017-10-10] MEDS ORDERED: EPLERENONE25 MG PO (15:56)
[2017-10-10] MEDS ORDERED: POTASSIUM CHLO10 ME4 PO (15:58)
[2017-10-10 16:35] VITALS: BP 121/78
[2017-10-10 20:00] VITALS: BP 137/70
[2017-10-11] VITALS (7 sets, daily range): BP systolic 135–159; BP diastolic 68–84
[2017-10-11 05:00] LABS: HEMATOCRIT 28.9 % (39.0-50.0); IMMATURE GRANULOCYTES 1.8 % (0.0-1.0); MEAN CELL VOLUME 96.7 fL CALC (80.0-100.0); MEAN CORPUSCULAR HGB 30.1 pG CALC (26.0-32.0); MEAN CORPUSCULAR HGB CONC 31.1 g/L CALC (32.0-36.0); NEUT# 9.5 thou/uL (1.82-7.42); RED BLOOD COUNT 2.99 mill/uL (4.70-6.10); RED CELL DISTRI WIDTH 16.6 % (11.5-15.5)
[2017-10-11 05:46] LABS: CREATININE 1.5 mg/dL (0.7-1.3); MAGNESIUM 2.3 mg/dL (1.6-2.3)
[2017-10-12 04:19] VITALS: BP 144/81
[2017-10-12 05:57] LABS: HEMATOCRIT 28.2 % (39.0-50.0); HEMOGLOBIN 8.9 g/dl (14.0-18.0); IMMATURE GRANULOCYTES 1.8 % (0.0-1.0); MEAN CELL VOLUME 96.2 fL CALC (80.0-100.0); MEAN CORPUSCULAR HGB 30.4 pG CALC (26.0-32.0); MEAN CORPUSCULAR HGB CONC 31.6 g/L CALC (32.0-36.0); NEUT# 9.6 thou/uL (1.82-7.42); RED BLOOD COUNT 2.93 mill/uL (4.70-6.10); RED CELL DISTRI WIDTH 16.3 % (11.5-15.5)
[2017-10-12 06:13] LABS: CREATININE 1.4 mg/dL (0.7-1.3); MAGNESIUM 2.3 mg/dL (1.6-2.3)
[2017-10-12 08:00] VITALS: BP 159/82
[2017-10-12 11:52] VITALS: BP 169/82
[2017-10-12] MEDS ORDERED: METO50TA52 PO (13:34)
[2017-10-12 14:11] VITALS: BP 166/98
[2017-10-12 15:32] VITALS: BP 133/72
[2017-10-12 20:47] VITALS: BP 171/91
[2017-10-13 00:20] VITALS: BP 112/64
[2017-10-13 04:47] VITALS: BP 162/92
[2017-10-13 06:09] LABS: HEMATOCRIT 30.5 % (39.0-50.0); HEMOGLOBIN 9.5 g/dl (14.0-18.0); IMMATURE GRANULOCYTES 1.9 % (0.0-1.0); MEAN CELL VOLUME 97.8 fL CALC (80.0-100.0); MEAN CORPUSCULAR HGB 30.4 pG CALC (26.0-32.0); MEAN CORPUSCULAR HGB CONC 31.1 g/L CALC (32.0-36.0); NEUT# 9.91 thou/uL (1.82-7.42); RED BLOOD COUNT 3.12 mill/uL (4.70-6.10); RED CELL DISTRI WIDTH 16.5 % (11.5-15.5)
[2017-10-13 06:24] LABS: CREATININE 1.5 mg/dL (0.7-1.3)
[2017-10-13 06:25] LABS: POTASSIUM 5.2 mmol/l (3.5-5.1)
[2017-10-13 07:31] VITALS: BP 161/92
[2017-10-13 10:51] VITALS: BP 156/83
[2017-10-13 15:46] VITALS: BP 174/96
[2017-10-13 19:25] VITALS: BP 154/77
[2017-10-14 00:15] VITALS: BP 159/64
[2017-10-14 04:12] VITALS: BP 160/64
[2017-10-14 05:13] LABS: HEMATOCRIT 28.6 % (39.0-50.0); HEMOGLOBIN 8.9 g/dl (14.0-18.0); MEAN CELL VOLUME 96.3 fL CALC (80.0-100.0); MEAN CORPUSCULAR HGB CONC 31.1 g/L CALC (32.0-36.0); RED BLOOD COUNT 2.97 mill/uL (4.70-6.10); RED CELL DISTRI WIDTH 16.4 % (11.5-15.5)
[2017-10-14 05:43] LABS: CREATININE 1.4 mg/dL (0.7-1.3); MAGNESIUM 2.3 mg/dL (1.6-2.3); POTASSIUM 4.5 mmol/l (3.5-5.1)
[2017-10-14 08:13] VITALS: BP 131/63
[2017-10-14] MEDS ORDERED: LEVEMIR100 UNIT/M SC (09:08)
[2017-10-14 11:48] VITALS: BP 156/62
== END 2017-10-14 14:33 | disposition home health service (06) | DRG 291 ==
LOC: ED 10:13 → ED-I 11:46 → ED 12:37 → MS2 13:16
PROVIDERS: Family Medicine; Nurse Practitioner Family; ADMIT Internal Medicine; ATTEND Internal Medicine
PROC: 5A09357 Assistance with Respiratory Ventilation, Less than 24 Consecutive Hours, Continuous Positive Airway Pressure (ICD-10-PCS; principal; 2017-10-10)
DX: I13.0 Hypertensive heart and chronic kidney disease with heart failure and stage 1 through stage 4 chronic kidney disease, or unspecified chronic kidney disease (principal); I50.33 Acute on chronic diastolic (congestive) heart failure; J44.1 Chronic obstructive pulmonary disease with (acute) exacerbation; J96.10 Chronic respiratory failure, unspecified whether with hypoxia or hypercapnia; E11.22 Type 2 diabetes mellitus with diabetic chronic kidney disease; N18.3 Chronic kidney disease, stage 3 (moderate); E11.42 Type 2 diabetes mellitus with diabetic polyneuropathy; I25.10 Atherosclerotic heart disease of native coronary artery without angina pectoris; I48.2 Chronic atrial fibrillation; E78.5 Hyperlipidemia, unspecified; N40.0 Benign prostatic hyperplasia without lower urinary tract symptoms; F41.9 Anxiety disorder, unspecified; D64.9 Anemia, unspecified; G47.33 Obstructive sleep apnea (adult) (pediatric); K21.9 Gastro-esophageal reflux disease without esophagitis; I25.2 Old myocardial infarction; Z95.0 Presence of cardiac pacemaker; Z95.5 Presence of coronary angioplasty implant and graft; Z85.51 Personal history of malignant neoplasm of bladder; Z85.828 Personal history of other malignant neoplasm of skin; Z87.891 Personal history of nicotine dependence; Z79.01 Long term (current) use of anticoagulants